=== PATIENT | female | born 1960 | race Caucasian/White ===

== ENCOUNTER 2019-03-16 14:24 | Emergency (ER) | payer OTHER ==
[~2019-03-16] VITALS: Ht 160 cm; Wt 68.0 kg
[~2019-03-16 14:24] MED LIST: NAPR500 PO; OXYACE5T PO; RXOXYACE PO
== END 2019-03-16 15:18 | disposition home or self-care (01) ==
LOC: ER 14:24
DX: S91.312A Laceration without foreign body, left foot, initial encounter (principal); W22.8XXA Striking against or struck by other objects, initial encounter
CPT/HCPCS: 12002; 90471; 90714; 99282-25